=== PATIENT | female | born 1965 | race African-American/Black ===

== ENCOUNTER 2017-06-19 16:44 | Inpatient (IN) | payer OTHER, MEDICAID ==
[~2017-06-19] VITALS: Ht 165.1 cm; Wt 68.0 kg
--- NOTE | 2017-06-19 16:44 | NUR ---
Patient was BIBA and taken to bed 12 via gurney per EMS.
--- NOTE | 2017-06-19 16:50 | NUR ---
PT TRIAGED, EMS TRANSFFERED PATIENT TO ER BED 12.
[2017-06-19 16:52] VITALS: BP 141/77
--- NOTE | 2017-06-19 16:58 | NUR ---
Marina mauro in [facility] - 06/19/17 at 1659 by ANNMARIE Patient to bed 12.
--- NOTE | 2017-06-19 17:02 | NUR ---
51/F BIBA TO ER C/O CONGESTION x 4 DAYS. HX: RENAL FAILURE, DIALYSIS SINCE 2001, PT AAO, SKIN WARM TO TOUCH RESP. EVEN AND UNLABORED, RIGHT EYE BLIND AND LEFT EYE WITH GLAUCOMA.PER PT SHE WAS IN THE URGENT CARE TODAY AND DIAGNOSE HER WITH PNEUMONIA AND PT WAS SENT HERE VIA AMBULANCE,PER PT SHE STARTED TO HAVE COUGHING EPISODES 4 DAYS AGO, WITH SOB, CHEST PAIN 10/10 DUE TO COUGHING,DENIES VOMITTING.
[2017-06-19] MEDS ORDERED: NACL 0.9% 1,000 ML IV ONE (17:25)
--- NOTE | 2017-06-19 17:25 | NUR ---
INFORMED O2 SAT 86,
--- NOTE | 2017-06-19 17:26 | NUR ---
XRAY AT BEDSIDE
[2017-06-19 17:48] LABS: EOSINOPHILS # (AUTO) 0.1 K/uL (0-0.4); EOSINOPHILS % (AUTO) 1.6 % (0.0-4.0); HEMATOCRIT 36.2 % (36-48); HEMOGLOBIN 11.3 g/dL (12.0-16.0); LYMPHOCYTES # (AUTO) 0.5 K/uL (2.5-16.5); LYMPHOCYTES % (AUTO) 11.9 % (20.5-51.1); MEAN CORPUSCULAR HEMOGLOBIN 27 pg (27-31); MEAN CORPUSCULAR HGB CONC 31 g/dL (33-37); MEAN CORPUSCULAR VOLUME 87 fL (80-94); MONOCYTES # (AUTO) 0.5 K/uL (0.8-1.0); MONOCYTES % (AUTO) 11.7 % (1.7-9.3); NEUTROPHILS # (AUTO) 3.2 K/uL (1.8-7.7); NEUTROPHILS % (AUTO) 73.8 % (42.2-75.2); PLATELET COUNT (AUTO) 137 K/uL (140-450); RED BLOOD CELL COUNT(AUTO) 4.16 MIL/uL (4.20-5.40); RED CELL DISTRIBUTION WIDTH 16.2 % (11.6-13.7); WHITE BLOOD COUNT (AUTO) 4.3 K/uL (4.8-10.8)
[2017-06-19 18:03] LABS: CARBON DIOXIDE 27.4 mmol/L (21-32); POTASSIUM 4.4 mmol/L (3.5-5.1)
[2017-06-19 18:05] LABS: PROTHROMBIN TIME 12.2 secs (10.8-13.4)
[2017-06-19 18:08] LABS: CREATININE 7.5 mg/dL (0.6-1.3)
[2017-06-19] MEDS ORDERED: CLINDAMYCIN 900 MG in DEXTROSE 5% 100 ML IV ONE (18:20)
[2017-06-19] MEDS ORDERED: NITROGLYCERIN 2% 1 GM PKT TP ONE (18:20)
[2017-06-19] MEDS ORDERED: PROMETH/CODEINE 6.25-10MG/5ML 5 ML UDC PO ONE (18:20)
--- NOTE | 2017-06-19 18:27 | NUR ---
TRIED PUTTING AN IV ONCE PT MOTHER SAID NO MORE, WILL ASK ANOTHER NURSE TO TRY, CHARGE NURSE ALSO TRIED TO PUT AN IV EARLIER BUT UNABLE.
[2017-06-19 18:29] LABS: ALBUMIN 2.3 g/dL (3.4-5.0)
--- NOTE | 2017-06-19 18:56 | NUR ---
DINNER GIVEN, TALKED TO PHARMACIST REGARDING CLEOCIN PER EDILBERTO THATS GOOD, CAUSE PT ALLERGIC TO PENICILLIN
[2017-06-19] MEDS ORDERED: CLINDAMYCIN 900 MG/6 ML VIAL IV ONE (18:59)
--- NOTE | 2017-06-19 19:18 | NUR ---
PT FINISHED EATING 100 PERCENT PT AAO, NO COUGHING NOTED, SKIN WARM TO TOUCH RESP. EVEN AND UNLABORED, AWARE WILL BE TRANSFER TO THE FLOOR AT THIS TIME
--- NOTE | 2017-06-19 19:57 | NUR ---
Pt report given to JOSELINE. Transfer of care at this time. PT AAO
--- NOTE | 2017-06-19 19:59 | NUR ---
RECEIVED FROM ER PER GLORIA AWAKE AND ALERT. ABLE TO VERBALIZE WELL IN [place]. ON 02 WITH 02 SAT OF 98 %. COUGHING INTERMITTENTLY. PRODUCTIVE. ORIENTED TO ROOM AND CALL LIGHT USE. RAPID RESPONSE EXPLAINED. TELEMETRY MONITORING. ST 122 ON MONITOR RT COUGHING. PT. INDEPENDENT. SKIN INTACT. HEMODIALYSIS PT. HD SITE AVF GRAFT TO RIGHT UPPER ARM.
[2017-06-19 20:00] VITALS: BP 140/76
--- NOTE | 2017-06-19 21:08 | NUR ---
FAMILY MEMBERS CAME IN TO VISIT. PT. SITTING UP IN BED. HEPLOCKED. CALL LIGHT AT BEDSIDE AND ENCOURAGED TO CALL FOR ANY HELP SHE MAY NEED.
[2017-06-19] MEDS ORDERED: ACETAMINOPHEN 325 MG TAB PO PRN (23:25)
[2017-06-19] MEDS ORDERED: HYDROcodone/APAP 5/325 MG 1 TAB TAB PO PRN ×2 (23:25→23:35)
[2017-06-19] MEDS ORDERED: ONDANSETRON 4 MG/2 ML VIAL IVP PRN (23:35)
[2017-06-20] VITALS: BP 138/68
[2017-06-20] MEDS: ACETAMINOPHEN 325 MG TAB PO PRN ×2 (00:34→20:16)
--- NOTE | 2017-06-20 01:20 | NUR ---
ASLEEP EASILY AWAKENS EDUCATION PROVIDED WITH PATIENT ACKNOWLEDGEMENT ON SPUTUM CULTURE SAMPLE SPECIMEN CUP PLACED ON PATIENT BEDSIDE TABLE
[2017-06-20 01:40] LABS: CREATINE KINASE MB 1.8 ng/mL (0-3.6)
--- NOTE | 2017-06-20 02:06 | NUR ---
WAITING FOR CLEOCIN TO BE DELIVERED BY [employer]. NEW MEDICATION ORDER FOR 0000.
[2017-06-20] MEDS ORDERED: CLINDAMYCIN 600 MG/4 ML VIAL ONE (02:24)
--- NOTE | 2017-06-20 02:40 | NUR ---
SLEEPING AT THIS TIME. TELEMETRY MONITORING.
[2017-06-20] MEDS: CLINDAMYCIN 300 MG in DEXTROSE 5% 50 ML IV SCH ×4 (02:46→17:40)
[2017-06-20 04:31] VITALS: BP 138/80
--- NOTE | 2017-06-20 04:33 | NUR ---
PT. AWAKE SITTING ON BED. COUGHING INTERMITTENTLY. REQUESTD FOR WARM WATER. NO COMPLAINTS DONE. NO NOTED ADVERSE REACTIONS TO IV ABT GIVEN.
--- NOTE | 2017-06-20 04:40 | NUR ---
SPUTUM SPECIMEN SENT TO LAB. AWAKE AND ABLE TO VERBALIZE NEEDS WELL.
--- NOTE | 2017-06-20 05:06 | NUR ---
PT. STILL AWAKE AND ABLE TO WALK TO RESTROOM INSIDE ROOM BY HERSELF. INDEPENDENT. ROM X 4. A/O X 4. TALKED WITH Winter PEDRO AND INFORMED HIM THAT THE PT. IS ASKING FOR MEDICINE RE:COUGHING. WITH NEW ORDERS GIVEN .
[2017-06-20] MEDS: PROMETH/CODEINE 6.25-10MG/5ML 5 ML UDC PO PRN ×2 (05:11→09:25)
--- NOTE | 2017-06-20 05:12 | NUR ---
COUGH MEDICATION GIVEN. PT. LAID DOWN IN BED AND TRYING TO GO BACK TO SLEEP.
--- NOTE | 2017-06-20 05:22 | NUR ---
CLEOCIN IVP 300 MG OF 0600 WILL BE HELD RT TOO CLOSE BETWEEN TIMING. WILL ENDORSE TO AM NURSE.
--- NOTE | 2017-06-20 07:15 | NUR ---
RECEIVED REPORT FROM ORACLE SOLUTIONS ARCHITECT NURSE AT BEDSIDE FOR CONTINUITY OF CARE. PT IS AOXR, ST, PT HAS A COUGH, DRY HACKING. R EYE BLIND, R ARM AV SHUNT FOR HD. PT HAS IV ACCESS L HAND 22G, SL. PER PT, PT HAS DIALYSIS , , AND SAT. HER NEPHRO IS DR.VICTOR QUINTERO. WILL SEE IF WE CAN CONTACT HIM FOR ORDERS. SKIN INTACT. LBM: 06/19/17. V/S WITHIN NORMAL RANGE, ST. DENIES PAIN. PT NEEDED MORE TISSUES. BROUGHT 2 BOXES FOR PT. ALL NEEDS MET AT THIS TIME. CALL LIGHT WITHIN REACH. UPDATED THE BOARD. WILL CONTINUE TO MONITOR PT.
[2017-06-20 07:22] LABS: EOSINOPHILS # (AUTO) 0.1 K/uL (0-0.4); EOSINOPHILS % (AUTO) 1.9 % (0.0-4.0); HEMATOCRIT 31.7 % (36-48); HEMOGLOBIN 10.4 g/dL (12.0-16.0); LYMPHOCYTES # (AUTO) 0.4 K/uL (2.5-16.5); LYMPHOCYTES % (AUTO) 10.7 % (20.5-51.1); MEAN CORPUSCULAR HEMOGLOBIN 28 pg (27-31); MEAN CORPUSCULAR HGB CONC 33 g/dL (33-37); MEAN CORPUSCULAR VOLUME 86 fL (80-94); MONOCYTES # (AUTO) 0.6 K/uL (0.8-1.0); MONOCYTES % (AUTO) 15.1 % (1.7-9.3); NEUTROPHILS % (AUTO) 71.3 % (42.2-75.2); PLATELET COUNT (AUTO) 122 K/uL (140-450); RED CELL DISTRIBUTION WIDTH 15.8 % (11.6-13.7); WHITE BLOOD COUNT (AUTO) 4.1 K/uL (4.8-10.8)
[2017-06-20 07:41] LABS: ANION GAP 17.1 (8-16); CARBON DIOXIDE 24.8 mmol/L (21-32); POTASSIUM 4.9 mmol/L (3.5-5.1)
[2017-06-20 07:59] LABS: PHOSPHORUS 7.6 mg/dL (2.5-4.9)
[2017-06-20 08:00] VITALS: BP 148/80
[2017-06-20 08:01] LABS: CREATININE 8.7 mg/dL (0.6-1.3)
--- NOTE | 2017-06-20 08:01 | NUR ---
CRITICAL LABS: TROP 0.268 DOWN TREND, BUN 63/CREAT 8.7. PT ON HD. DUE TODAY.
[2017-06-20] MEDS ORDERED: VIT-B COMP/VIT-C/FOLIC ACID 1 TAB PO SCH (09:10)
[2017-06-20] MEDS ORDERED: CINACALCET 30 MG TAB PO SCH (09:43)
[2017-06-20] MEDS ORDERED: SODIUM BICARBONATE 650 MG TAB PO SCH (09:44)
--- NOTE | 2017-06-20 10:20 | NUR ---
PT ASKING ABOUT WHEN SHE WILL BE GETTING DIALYSIS. NOTIFIED HER ONCE THE DIALYSIS NURSE GETS HERE. UNSURE ABOUT TIME. WILL KEEP HER POSTED.
[2017-06-20 12:00] VITALS: BP 154/74
[2017-06-20] MEDS: CALCIUM ACETATE 667 MG TAB PO SCH ×2 (12:00→17:40)
--- NOTE | 2017-06-20 12:00 | NUR ---
HELD CLINDAMYCIN. PT GETTING DIALYSIS.
--- NOTE | 2017-06-20 12:16 | NUR ---
DIALYSIS NURSE IS WITH PT, STARTING HD ORDERED. WILL HOLD CLINDAMYCIN UNTIL POST DIALYSIS. WILL CONTINUE TO MONITOR PT.
--- NOTE | 2017-06-20 14:04 | NUR ---
PT TOLERATING DIALYSIS WELL. BIOINFORMATICS DEVELOPER AT BEDSIDE. NO COMPLAINTS. WILL CONTINUE TO MONITOR PT.
[2017-06-20 15:52] LABS: CREATINE KINASE MB 1.8 ng/mL (0-3.6)
[2017-06-20 16:00] VITALS: BP 155/74
--- NOTE | 2017-06-20 17:45 | NUR ---
PT C/O CLINDAMYCIN, THINKING THAT IT IS MAKING HER COUGH EVEN MORE. PT REFUSING TO TAKE MEDS. WAITING FOR PT TO TAKE. FINALLY TOOK HER MEDS. WILL CONTINUE TO MONITOR PT. DINNER IS HERE. PT IS EATING DINNER. WILL CONTINUE TO MONITOR PT.
--- NOTE | 2017-06-20 19:30 | NUR ---
ENDORSED PT TO THE WHOLESALE AGRONOMIST NURSE AT BEDSIDE FOR CONTINUITY OF CARE. PT IS IN STABLE CONDITION.
--- NOTE | 2017-06-20 19:39 | NUR ---
PT ROOM AIR SATS 90% PLACED PT BACK ON 2LNC
--- NOTE | 2017-06-20 19:40 | NUR ---
RECEIVED REPORT FROM AM NURSE. PT RESTING IN BED, AOX4, ABLE TO VERBALIZE NEEDS. PT DENIES CHEST PAIN, SOB OR S/S OF ACUTE DISTRESS. SPO2 90% ON ROOM AIR, PLACED ON O2 2L NC BY RT, SPO2 NOW 94%, RR 22 EVEN AND UNLABORED. INTERMITTENT NONPRODUCTIVE COUGH NOTED, PT'S PREVIOUS SPUTUM CULTURE WAS CONTAMINATED WITH SALIVA, PT INSTRUCTED TO COLLECT SPUTUM. AV FISTULA NOTED ON R UPPER ARM, BRUIT AND THRILL NOTED, EXTREMITY RESTRICTIONS FOLLOWED. DISCUSSED AND REVIEWED PLAN OF CARE WITH PT. PT VERBALIZED UNDERSTANDING. ALL NEEDS MET. SAFETY MEASURES ENSURED. CALL LIGHT WITHIN REACH. WILL CONTINUE TO MONITOR.
[2017-06-20 20:00] VITALS: BP 151/75
[2017-06-20] MEDS: SODIUM BICARBONATE 650 MG TAB PO SCH (20:16)
--- NOTE | 2017-06-20 20:16 | NUR ---
TEMP 102, COOLING MEASURES ENSURED, PT REFUSED ICE PACKS, ADMINISTERED TYLENOL PO PRN ORDERED WITH EDUCATION. ADMINISTERED REMAINING DUE MEDS WITH EDUCATION. PT VERBALIZED UNDERSTANDING, TOLERATED MEDS WELL. ALL NEEDS MET. SAFETY MEASURES ENSURED. CALL LIGHT WITHIN REACH. WILL CONTINUE TO MONITOR.
[2017-06-20] MEDS ORDERED: LEVOFLOXACIN 500 MG/D5W PREMIX 100 ML IV SCH (22:25)
[2017-06-21] VITALS: BP 138/65
[2017-06-21] MEDS ORDERED: LEVOFLOXACIN 500 MG/D5W PREMIX 100 ML IV SCH (00:30)
--- NOTE | 2017-06-21 00:45 | NUR ---
CALLED DR SMALL, MADE AWARE THAT ORDERED LEVAQUIN 500MG PREMIX Q48H HAS A PENDING COMMENT TO REDUCE TO LEVAQUIN 250MG PREMIX Q48H DUE TO CRCL=9ML/MIN. ORDERS RECEIVED TO CHANGE TO LEVAQUIN 500MG PREMIX AT FIRST DOSE AT THIS TIME AND LEVAQUIN 250MG PREMIX Q48H AFTER FIRST DOSE. ALSO MADE MD AWARE OF PT'S TEMP 102 AT 2000, THAT RESOLVED TO 98.5 AFTER TYLENOL PO PRN. STATED THAT IT IS FINE. CALLED PHARMACY, MADE PHARMACY AWARE OF MD ORDERS. PHARMACY TO VERIFIED LEVAQUIN 500MG PREMIX FIRST DOSE AT THIS TIME, AND PHARMACY TO CHANGE LEVAQUIN 250MG PREMIX Q48H TO START AT 06/22/17 2100 FOR STANDARDIZED TIME. ADMINISTERED DUE MED LEVAQUIN 500MG PREMIX AT THIS TIME WITH EDUCATION. PT VERBALIZED UNDERSTANDING. ALL NEEDS MET. IVPB INFUSING WELL. SAFETY MEASURES ENSURED. CALL LIGHT WITHIN REACH. WILL CONTINUE TO MONITOR.
[2017-06-21 04:00] VITALS: BP 137/71
--- NOTE | 2017-06-21 04:15 | NUR ---
PT SLEEPING COMFORTABLY, NO S/S OF ACUTE DISTRESS. ALL NEEDS MET. SAFETY MEASURES ENSURED. CALL LIGHT WITHIN REACH. WILL CONTINUE TO MONITOR.
[2017-06-21 07:09] LABS: BASOPHILS % (AUTO) 0.9 % (0.0-2.0); EOSINOPHILS # (AUTO) 0.1 K/uL (0-0.4); EOSINOPHILS % (AUTO) 3.3 % (0.0-4.0); HEMATOCRIT 32.4 % (36-48); HEMOGLOBIN 10.2 g/dL (12.0-16.0); LYMPHOCYTES # (AUTO) 0.4 K/uL (2.5-16.5); MEAN CORPUSCULAR HEMOGLOBIN 28 pg (27-31); MEAN CORPUSCULAR HGB CONC 32 g/dL (33-37); MEAN CORPUSCULAR VOLUME 88 fL (80-94); MONOCYTES # (AUTO) 0.4 K/uL (0.8-1.0); MONOCYTES % (AUTO) 13.2 % (1.7-9.3); NEUTROPHILS # (AUTO) 2.3 K/uL (1.8-7.7); NEUTROPHILS % (AUTO) 71.6 % (42.2-75.2); PLATELET COUNT (AUTO) 124 K/uL (140-450); RED BLOOD CELL COUNT(AUTO) 3.69 MIL/uL (4.20-5.40); RED CELL DISTRIBUTION WIDTH 15.8 % (11.6-13.7); WHITE BLOOD COUNT (AUTO) 3.2 K/uL (4.8-10.8)
[2017-06-21 07:10] LABS: ANION GAP 12.9 (8-16); CARBON DIOXIDE 26.9 mmol/L (21-32); POTASSIUM 3.8 mmol/L (3.5-5.1)
--- NOTE | 2017-06-21 07:15 | NUR ---
ENDORSED PLAN OF CARE TO AM NURSE. CONDITION STABLE.
[2017-06-21 07:18] LABS: CREATININE 6.4 mg/dL (0.6-1.3)
--- NOTE | 2017-06-21 07:30 | NUR ---
RECEIVED REPORT FROM TOOL CRIB LEAD NURSE, PT IS A/OX4, AMBULATORY, PT HAS AV SHUNT ON THE RIGHT UPPER ARM, IV ON THE LEFT FA, SL, PATENT, INTACT, FLUSHING WELL, ON O2 2L NC, NO S/S OF RESPIRATORY DISTRESS OR DISCOMFORT NOTED, SAFETY/FALL PRECAUTIONS ARE IN PLACE, CALL LIGHT WITHIN REACH.
[2017-06-21 08:00] VITALS: BP 130/63
[2017-06-21] MEDS: SODIUM BICARBONATE 650 MG TAB PO SCH ×2 (08:23→20:35)
[2017-06-21] MEDS: CALCIUM ACETATE 667 MG TAB PO SCH ×3 (08:23→16:18)
[2017-06-21] MEDS: VIT-B COMP/VIT-C/FOLIC ACID 1 TAB PO SCH (08:23)
[2017-06-21] MEDS: CINACALCET 30 MG TAB PO SCH (08:24)
[2017-06-21 09:09] LABS: MAGNESIUM 1.9 mg/dL (1.8-2.4); PHOSPHORUS 5.7 mg/dL (2.5-4.9)
[2017-06-21 12:00] VITALS: BP 134/68
--- NOTE | 2017-06-21 12:00 | NUR ---
PT SITTING UP IN BED, FAMILY MEMBER IS AT BEDSIDE, CALL LIGHT WITHIN REACH.
[2017-06-21 16:00] VITALS: BP 128/62
[2017-06-21] MEDS: PROMETH/CODEINE 6.25-10MG/5ML 5 ML UDC PO PRN (16:18)
--- NOTE | 2017-06-21 16:39 | NUR ---
ENDORSED PT TO EARLINE FAITH FOR CONTINUITY OF CARE. PT STABLE AT THIS TIME.
--- NOTE | 2017-06-21 19:30 | NUR ---
RECEIVED REPORT FROM AM NURSE. PT RESTING IN BED, AOX4, ABLE TO VERBALIZE NEEDS. SPO2 94% ON ROOM AIR, RR 22 EVEN AND UNLABORED, PT DENIES SOB OR CHEST PAIN. INTERMITTENT NONPRODUCTIVE COUGH NOTED. AV FISTULA NOTED ON R UPPER ARM, BRUIT AND THRILL NOTED, EXTREMITY RESTRICTIONS FOLLOWED. IV ACCESS ASYMPTOMATIC, PATENT AND INTACT. SALINE LOCKED. DISCUSSED AND REVIEWED PLAN OF CARE WITH PT. PT VERBALIZED UNDERSTANDING. ALL NEEDS MET. SAFETY MEASURES ENSURED. CALL LIGHT WITHIN REACH. WILL CONTINUE TO MONITOR.
[2017-06-21 20:00] VITALS: BP 132/71
[2017-06-21] MEDS: ACETAMINOPHEN 325 MG TAB PO PRN (20:36)
--- NOTE | 2017-06-21 20:41 | NUR ---
PT C/O BACK PAIN. SEE PAIN ASSESSMENT. ADMINISTERED TYLENOL PO PRN ORDERED WITH EDUCATION. ADMINISTERED REMAINING DUE MED WITH EDUCATION. PT VERBALIZED UNDERSTANDING. ALL NEEDS MET. SAFETY MEASURES ENSURED. CALL LIGHT WITHIN REACH. WILL CONTINUE TO MONITOR.
--- NOTE | 2017-06-21 23:45 | NUR ---
PT SLEEPING COMFORTABLY, AROUSABLE TO NAME. NO S/S OF ACUTE DISTRESS. ALL NEEDS MET. SAFETY MEASURES ENSURED. CALL LIGHT WITHIN REACH. WILL CONTINUE TO MONITOR.
[2017-06-22] VITALS: BP 106/58
[2017-06-22] MEDS: ACETAMINOPHEN 325 MG TAB PO PRN ×2 (03:25→16:14)
--- NOTE | 2017-06-22 03:30 | NUR ---
PT C/O BACK PAIN. SEE PAIN ASSESSMENT. ADMINISTERED TYLENOL PO PRN ORDERED WITH EDUCATION. PT VERBALIZED UNDERSTANDING. SPO2 94% ON ROOM AIR, RR 24 EVEN AND SYMMETRIC, PT DENIES SOB. ALL NEEDS MET. SAFETY MEASURES ENSURED. CALL LIGHT WITHIN REACH. WILL CONTINUE TO MONITOR.
[2017-06-22 04:00] VITALS: BP 135/65
[2017-06-22 07:07] LABS: BASOPHILS % (AUTO) 1.3 % (0.0-2.0); EOSINOPHILS # (AUTO) 0.1 K/uL (0-0.4); EOSINOPHILS % (AUTO) 1.6 % (0.0-4.0); HEMATOCRIT 32.5 % (36-48); HEMOGLOBIN 10.7 g/dL (12.0-16.0); LYMPHOCYTES # (AUTO) 0.4 K/uL (2.5-16.5); LYMPHOCYTES % (AUTO) 13.1 % (20.5-51.1); MEAN CORPUSCULAR HEMOGLOBIN 28 pg (27-31); MEAN CORPUSCULAR HGB CONC 33 g/dL (33-37); MEAN CORPUSCULAR VOLUME 85 fL (80-94); MONOCYTES # (AUTO) 0.5 K/uL (0.8-1.0); MONOCYTES % (AUTO) 14.9 % (1.7-9.3); NEUTROPHILS # (AUTO) 2.4 K/uL (1.8-7.7); NEUTROPHILS % (AUTO) 69.1 % (42.2-75.2); PLATELET COUNT (AUTO) 142 K/uL (140-450); RED BLOOD CELL COUNT(AUTO) 3.81 MIL/uL (4.20-5.40); RED CELL DISTRIBUTION WIDTH 15.7 % (11.6-13.7); WHITE BLOOD COUNT (AUTO) 3.4 K/uL (4.8-10.8)
--- NOTE | 2017-06-22 07:10 | NUR ---
ENDORSED PLAN OF CARE TO AM NURSE. CONDITION STABLE.
--- NOTE | 2017-06-22 07:15 | NUR ---
RECEIVED PATIENT REPORT AT BEDSIDE FROM NIGHT NURSE. PATIENT IS AAOX3 AND SHOWS NO S/S OF ACUTE DISTRESS ON ROOM AIR. PATIENT DENIES PAIN AT THIS TIME. NOTED RT UPPER ARM AV SHUNT WITH THRILL AT PALPATION. NOTED RHONCHI AND WHEEZES AT LOWER LOBES WITH EXPIRATION. PATIENT IS BLIND ON THE LEFT EYE AND HAS GLAUCOMA ON THE LEFT EYE. NOTED IV SL ON THE LEFT FA. PATIENT IS AMB WITH SKIN INTACT. ON TELE MONITORING. DISCUSSED HOSPITAL ENVIRONMENT, CALL LIGHT FOR ASSISTANCE, AND POC WITH PATIENT. PATIENT VERBALIZED UNDERSTANDING. WILL CONTINUE TO MONITOR.
[2017-06-22 07:20] LABS: ANION GAP 17.4 (8-16); CARBON DIOXIDE 25.1 mmol/L (21-32); POTASSIUM 4.5 mmol/L (3.5-5.1)
[2017-06-22 07:24] LABS: MAGNESIUM 1.9 mg/dL (1.8-2.4); PHOSPHORUS 5.6 mg/dL (2.5-4.9)
[2017-06-22 07:29] LABS: CREATININE 8.4 mg/dL (0.6-1.3)
--- NOTE | 2017-06-22 07:30 | NUR ---
RECEIVED CALL FROM LAB REGARDING PATIENT'S BUN OF 59 AND CREATININE OF 8.4. WILL PAGE
--- NOTE | 2017-06-22 07:45 | NUR ---
PAGED DR PASTRANA REGARDING ABNORMAL LABS. WILL AWAIT CALL BACK.
--- NOTE | 2017-06-22 07:50 | NUR ---
DR PASTRANA ON UNIT AND IS AWARE OF ABNORMAL LAB VALUES.
[2017-06-22 08:00] VITALS: BP 144/73
--- NOTE | 2017-06-22 08:55 | NUR ---
ADMINISTERED SCHEDULED MEDICATIONS. PATIENT SWALLOWED WITHOUT DIFFICULTY. WILL CONTINUE TO MONITOR.
[2017-06-22] MEDS: VIT-B COMP/VIT-C/FOLIC ACID 1 TAB PO SCH (08:58)
[2017-06-22] MEDS: CALCIUM ACETATE 667 MG TAB PO SCH ×3 (08:58→16:14)
[2017-06-22] MEDS: CINACALCET 30 MG TAB PO SCH (08:58)
[2017-06-22] MEDS: SODIUM BICARBONATE 650 MG TAB PO SCH ×2 (08:58→20:56)
[2017-06-22] MEDS: PROMETH/CODEINE 6.25-10MG/5ML 5 ML UDC PO PRN ×2 (09:04→16:14)
--- NOTE | 2017-06-22 09:08 | NUR ---
PHENERGAN/CODEINE 10 MG GIVEN FOR NON PRODUCTIVE COUGH.
--- NOTE | 2017-06-22 10:40 | NUR ---
PATIENT IS RESTING IN BED AND SHOWS NO S/S OF ACUTE DISTRESS ON ROOM AIR. WILL CONTINUE TO MONITOR.
--- NOTE | 2017-06-22 11:15 | NUR ---
PATIENT IS SLEEPING AND AROUSABLE BY SHAKING. BLOOD SUGAR IS 136, NO INSULIN COVERAGE NEEDED. PATIENT'S MOTHER AT BEDSIDE. ALL OF PATIENT'S NEEDS MET AT THIS TIME. Addendum: 06/22/17 at 1137 by Marely Akins RN WRONG PATIENT
--- NOTE | 2017-06-22 11:20 | NUR ---
ADMINISTERED SCHEDULED MEDICATIONS. ALL OF PATIENT'S NEEDS MET AT THIS TIME. WILL CONTINUE TO MONITOR.
[2017-06-22 12:00] VITALS: BP 103/59
[2017-06-22] MEDS ORDERED: SEN30 PO (12:23)
[2017-06-22] MEDS ORDERED: NEP PO (12:23)
[2017-06-22] MEDS ORDERED: LEVO750T2 PO (12:23)
[2017-06-22] MEDS ORDERED: PHO667 PO (12:23)
--- NOTE | 2017-06-22 13:20 | NUR ---
PATIENT STATED CONCERNS OF DISCHARGE TODAY, PATIENT SAID, "I DON'T FEEL WELL ENOUGH TO GO HOME TODAY." DR Marilee PALOMINO WAS NOTIFIED. DR YODERAYED TO CANCEL DISCHARGE ORDER FOR TODAY.
--- NOTE | 2017-06-22 15:00 | NUR ---
PATIENT IS AWARE SHE WILL NOT BE DISCHARGED TODAY. PATIENT VERBALIZED UNDERSTANDING.
--- NOTE | 2017-06-22 15:51 | NUR ---
CONFIRM HD FOR TOMORROW WITH [facility] HD NURSE.
[2017-06-22 16:00] VITALS: BP 118/67
--- NOTE | 2017-06-22 16:00 | NUR ---
PATIENT TEMPERATURE IS 101.4 F. PATIENT WAS GIVEN TYLENOL 650 MG PO. COOLING MEASURES APPLIED. WILL REASSESS TEMPERATURE IN ONE HR.
--- NOTE | 2017-06-22 16:30 | NUR ---
PATIENT BEING SEEN BY DR Rosalio PALOMINO, AND WAS NOTIFIED OF ELEVATED TEMPERATURE. DR ORDERED INFLUENZA A AND B ANTIGENS. WILL PLACE ORDERS.
--- NOTE | 2017-06-22 16:35 | NUR ---
PATIENT STATED, " I FEEL CONGESTED, I NEED TO TALK TO DR PASTRANA, I NEED HD TONIGHT OR MY FACE WILL SWELL UP." APPLIED O2 @ 2L VIA NC. WILL PAGE DR. PASTRANA.
--- NOTE | 2017-06-22 16:50 | NUR ---
INFLUENZA A AND B SPECIMEN COLLECTED AND SENT TO LAB.
--- NOTE | 2017-06-22 16:55 | NUR ---
PAGED DR PASTRANA WILL AWAIT FOR CALL BACK.
--- NOTE | 2017-06-22 17:10 | NUR ---
DR PASTRANA CALLED BACK AND WAS NOTIFIED OF PATIENT'S CONCERNS. PATIENT SPOKE TO AND VERBALIZED UNDERSTANDING OF CARE AND HD WILL BE DONE FIRST THING TOMORROW AM.
--- NOTE | 2017-06-22 17:30 | NUR ---
PATIENT ORAL TEMPERATURE IS NOW 99.4 F. WILL CONTINUE TO MONITOR.
--- NOTE | 2017-06-22 19:05 | NUR ---
PATIENT REPORT GIVEN AT BEDSIDE TO NIGHT NURSE. PATIENT ENDORSED IN STABLE CONDITION.
--- NOTE | 2017-06-22 19:15 | NUR ---
PATIENT REPORT GIVEN AT BEDSIDE TO NIGHT NURSE. PATIENT ENDORSED IN STABLE CONDITION.
--- NOTE | 2017-06-22 19:19 | NUR ---
RECEIVED FROM AM RN AWAKE ,ALERT AND NO SOB. TALKING TO FRIENDS ON THE PHONE. VERBALIZES WELL IN [place]. AMBULATES WELL. TELEMETRY MONITORING. CALL LIGHT WITH IN REACH. ENCOURAGED TO CALL FOR ANY HELP OR ANY PAIN SHE MIGHT HAVE.
[2017-06-22 19:40] VITALS: BP 122/68
[2017-06-22] MEDS ORDERED: LEVOFLOXACIN 250 MG/D5 PREMIX 50 ML IV SCH (21:00)
--- NOTE | 2017-06-22 22:00 | NUR ---
STILL AWAKE WATCHING TV. NO COMPLAINTS DONE. CALL LIGHT WITH IN REACH AT ALL TIMES. TELEMETRY MONITORING. NO SOB.
--- NOTE | 2017-06-23 | NUR ---
SLEEPING WELL. FLACC 0-
[2017-06-23 00:32] VITALS: BP 134/62
--- NOTE | 2017-06-23 03:11 | NUR ---
SLEEPING. NO RESTLESSNESS NOTED. TELEMETRY MONITORING.
[2017-06-23 05:24] VITALS: BP 116/62
--- NOTE | 2017-06-23 07:22 | NUR ---
ENDORSED TO THE NEXT RN FOR CONTINUITY OF CARE. SLEEPING. WOKE UP EASILY WHEN CALLED BY NAME. TELEMETRY MONITORING. NO SOB.
--- NOTE | 2017-06-23 07:25 | NUR ---
REPORT RECEIVED FROM SYSTEMS SECURITY ANALYST, PT RESTING QUIETLY IN NAD, RESP EVEN UNLABORED, SKIN WARM DRY COLOR WNL, PT DENIES PAIN OR DISCOMFORT, PLAN OF CARE REVIEWED, CALL LUCERO WITHIN REACH, SIDE RAILS UP, BED LOCKED IN LOW POSITION. WILL CONTINUE TO MONITOR.
[2017-06-23] MEDS: ACETAMINOPHEN 325 MG TAB PO PRN (07:58)
[2017-06-23] MEDS: CALCIUM ACETATE 667 MG TAB PO SCH ×2 (07:59→12:03)
[2017-06-23 08:00] VITALS: BP 106/58
--- NOTE | 2017-06-23 08:00 | NUR ---
DIETARY CALLED FOR FRUITS, TATER TOTS, HAMBERGER MEAT AND [place] TRIBES SODA REQUESTED BY PT.
[2017-06-23] MEDS: SODIUM BICARBONATE 650 MG TAB PO SCH (08:04)
[2017-06-23] MEDS: VIT-B COMP/VIT-C/FOLIC ACID 1 TAB PO SCH (08:05)
[2017-06-23] MEDS: CINACALCET 30 MG TAB PO SCH (08:05)
[2017-06-23] MEDS ORDERED: ALBUMIN HUMAN 25% 100 ML IV SCH (08:48)
--- NOTE | 2017-06-23 08:56 | NUR ---
DIALYSIS NURSE AT BEDSIDE.
[2017-06-23 12:00] VITALS: BP 110/57
--- NOTE | 2017-06-23 12:20 | NUR ---
DIALYSIS DONE, 3600ML TAKEN OUT PER DIALYSIS NURSE, VS STABLE, DUE MED GIVEN, WILL DC HOME PER ORDER.
--- NOTE | 2017-06-23 13:30 | NUR ---
DC INSTRUCTION AND RX GIVEN AND EXPLAINED TO PT, PT VERBALIZED FULL UNDERSTANDING, 22G IV DC'D, CATH TIP INTACT, BLEEDING CONTROLLED, RIGHT UPPER ARM DIALYSIS SHUNT WITH DRESSING CDI, NO BLEEDING NOTED, PT AWAITING FAMILY TO PICK HER UP FOR DC HOME.
--- NOTE | 2017-06-23 13:54 | NUR ---
Geology Instructor contact Patient's daughter Patrick Samuel at as a courtesy call to discuss, and gather patients information. Ms. Samuel was cooperative and confirmed all recent patients services and providers; stated that she lives with patient and that she is provided with family support from patients mother Sulema Moulton, sister Jayshree Moulton, and daughter Patrick Samuel to assist her at home and with transportation as needed for patient. Patient's daughter also stated that Patient is also provided with alternative transportation by insurance with "[employer]". Ms. Moulton confirmed that plan after discharge is for patient to go back home and that her grandmother Mrs. Sulema Moulton will be transporting patient home after discharge. Ms. Samuel thank trim line worker and ended call .
--- NOTE | 2017-06-23 14:08 | NUR ---
Instructor Dramatic Arts attempted to call Patient's mother Sulema Moulton at . No response and sr. social media & mobile manager left a voicemail with request to call back.
--- NOTE | 2017-06-23 14:45 | NUR ---
DC HOME NOW WITH MOTHER, PT ESCORTED OUT TO FRONT LOBBY IN WHEELCHAIR.
== END 2017-06-23 14:45 | disposition home or self-care (01) | DRG 871 ==
LOC: MED 16:44 → MTU 19:37
PROVIDERS: ADMIT Preventive Medicine Preventive Medicine/Occupational Environmental Medicine; ATTEND Preventive Medicine Preventive Medicine/Occupational Environmental Medicine
PROC: 5A1D70Z Performance of Urinary Filtration, Intermittent, Less than 6 Hours Per Day (ICD-10-PCS; principal; 2017-06-20)
PROC: 5A1D70Z Performance of Urinary Filtration, Intermittent, Less than 6 Hours Per Day (ICD-10-PCS; 2017-06-23)
DX: A41.01 Sepsis due to Methicillin susceptible Staphylococcus aureus (principal); J18.9 Pneumonia, unspecified organism; I13.2 Hypertensive heart and chronic kidney disease with heart failure and with stage 5 chronic kidney disease, or end stage renal disease; D61.818 Other pancytopenia; M32.14 Glomerular disease in systemic lupus erythematosus; I50.9 Heart failure, unspecified; E88.09 Other disorders of plasma-protein metabolism, not elsewhere classified; N18.6 End stage renal disease; N39.0 Urinary tract infection, site not specified; J40 Bronchitis, not specified as acute or chronic; Z99.2 Dependence on renal dialysis; Z88.2 Allergy status to sulfonamides; Z88.0 Allergy status to penicillin; Z88.6 Allergy status to analgesic agent; Z88.1 Allergy status to other antibiotic agents; Z98.891 History of uterine scar from previous surgery
CPT/HCPCS: 36415; 71010; 80048; 80053; 82550; 82553; 83605; 83735; 83880; 84100; 84484; 85025; 85610; 85651; 85730; 86140; 87040; 87070; 87081; 87205; 87804; 93005; 96365; 99285; J1956; J2405; J3490; J7030; J7060; P9046; Q0092